=== PATIENT | female | born 1970 | race African-American/Black ===

== ENCOUNTER 2017-10-31 12:13 | Emergency (ER) | payer MEDICAID, OTHER ==
[~2017-10-31] VITALS: Ht 172.7 cm; Wt 72.0 kg
[2017-10-31] MEDS ORDERED: IBUPROFEN 600MG TABLET PO ONE (15:30)
[2017-10-31 17:02] VITALS: BP 118/69
== END 2017-10-31 17:55 | disposition home or self-care (01) ==
LOC: ER 12:13
DX: S09.90XA Unspecified injury of head, initial encounter (principal); Y93.01 Activity, walking, marching and hiking; M54.5 Low back pain; W01.0XXA Fall on same level from slipping, tripping and stumbling without subsequent striking against object, initial encounter; Y92.480 Sidewalk as the place of occurrence of the external cause; I10 Essential (primary) hypertension; Z90.89 Acquired absence of other organs
CPT/HCPCS: 70450; 99284